=== PATIENT | male | born 1945 | race Caucasian/White ===

== ENCOUNTER 2017-05-03 10:26 | Emergency (ER) | payer OTHER, MEDICARE ==
[~2017-05-03] VITALS: Ht 175.3 cm; Wt 105.0 kg
[2017-05-03 10:37] VITALS: BP 143/84; PULSE 94; RESP 16; TEMP 97.9; O2SAT 97
[2017-05-03] MEDS ORDERED: METF500T PO (10:49)
[2017-05-03] MEDS ORDERED: MAGN400T2 PO (10:49)
[2017-05-03] MEDS ORDERED: NOVOLOGP2 SQ (10:49)
[2017-05-03] MEDS ORDERED: TERA2CAP3 PO (10:49)
[2017-05-03] MEDS ORDERED: LANTUS2P SQ ×2 (10:49→10:52)
[2017-05-03] MEDS ORDERED: FLUO20CA12 PO (10:49)
[2017-05-03] MEDS ORDERED: ETOD200 PO (10:49)
[2017-05-03] MEDS ORDERED: VENL75TA PO (10:49)
[2017-05-03] MEDS ORDERED: LEVO175T2 PO (10:49)
[2017-05-03] MEDS ORDERED: LISI40TA PO (10:49)
[2017-05-03] MEDS ORDERED: SIMV20TA PO (10:49)
[2017-05-03] MEDS ORDERED: ATEN50TA PO (10:49)
[2017-05-03] MEDS ORDERED: TEMA15CA PO (10:49)
--- NOTE | 2017-05-03 10:51 | PD ---
HPI Chief Complaint: Medication Refill Request Time Seen by Provider: 10:43 Travel History International Travel<30 days: No Contact w/Intl Traveler<30days: No Traveled to known affect area: No History of Present Illness HPI 71-year-old diabetic male from [place] presents to the emergency department with a medication refill request. Patient states that he needs a refill of his lantus 70U BID. Says that he traveled to [place] yesterday and forgot his medication at home. He was able to take his dose last night but has not taken his dose this morning. Patient states he will leave for home tomorrow afternoon. Patient has no other complaints today. States he is compliant with his other oral diabetic medications. PFSH Past Medical History Diabetes: Yes Patient Takes Glucophage: No Thyroid Disease: Yes Social History Alcohol Use: No Tobacco Use: No Substance Use: No Allergies-Medications (Allergen,Severity, Reaction): Coded Allergies: Penicillins (Verified Allergy, Unknown, 05/03/17) gemfibrozil (Verified Allergy, Unknown, 05/03/17) Reported Meds & Prescriptions Reported Meds & Active Scripts Active Lantus Inj (Insulin Glargine) 1,000 Unit/10 Ml Vial 70 Units SQ BID 3 Days Reported Effexor (Venlafaxine HCl) 75 Mg Tab 150 Mg PO DAILY Terazosin (Terazosin HCl) 2 Mg Cap 2 Mg PO HS Etodolac 200 Mg Cap 200 Mg PO TID Take with food. Metformin (Metformin HCl) 500 Mg Tab 1,000 Mg PO BIDPC Lisinopril 40 Mg Tab 40 Mg PO DAILY Atenolol 50 Mg Tab 50 Mg PO DAILY Fluoxetine (Fluoxetine HCl) 20 Mg Capsule 20 Mg PO DAILY Simvastatin 20 Mg Tab 20 Mg PO DAILY Temazepam 15 Mg Cap 15 Mg PO HS PRN Levothyroxine (Levothyroxine Sodium) 175 Mcg Tab 175 Mcg PO DAILY Lantus Inj (Insulin Glargine) 1,000 Unit/10 Ml Vial 70 Units SQ BID Novolog Inj (Insulin Aspart) 1,000 Unit/10 Ml Vial 20 Units SQ BID Magnesium Oxide 400 Mg Tab 400 Mg PO BID Review of Systems Except as stated in HPI: all other systems reviewed are Neg Physical Exam Narrative GENERAL: Well-nourished, well-developed patient. SKIN: Focused skin assessment warm/dry. HEAD: Normocephalic. EYES: No scleral icterus. No injection or drainage. NECK: Supple, trachea midline. No JVD or lymphadenopathy. CARDIOVASCULAR: Regular rate and rhythm without murmurs, gallops, or rubs. RESPIRATORY: Breath sounds equal bilaterally. No accessory muscle use.. MUSCULOSKELETAL: No cyanosis, or edema. BACK: Nontender without obvious deformity. No CVA tenderness. Data Data Last Documented VS Vital Signs Date Time Temp Pulse Resp B/P (MAP) Pulse Ox O2 Delivery O2 Flow Rate FiO2 05/03/17 10:37 97.9 94 16 143/84 (103) 97 Orders Orders Ed Discharge Order (05/03/17 10:53) [facility] Medical Decision Making Medical Screen Exam Complete: Yes Emergency Medical Condition: Yes Differential Diagnosis Medication refill, diabetes, noncompliance Narrative Course 71-year-old diabetic male from [place] presents to the emergency department with a medication refill request. Patient states that he needs a refill of his lantus 70U BID. Says that he traveled to [place] yesterday and forgot his medication at home. He was able to take his dose last night but has not taken his dose this morning. Patient states he will leave for home tomorrow afternoon. Patient has no other complaints today. States he is compliant with his other oral diabetic medications. Vital signs stable Physical exam findings are remarkable. We'll fill Lantus 70 units twice a day. Advised to follow-up with his primary care physician within 2-3 days. Advised to return to the emergency department for worsening or persistent symptoms. Diagnosis Primary Impression: Medication refill Referrals: Primary Care Physician Additional Instructions: Follow up with your primary care physician within 2-3 days. If your symptoms persist or worsen, return to the emergency department. Scripts Insulin Glargine Inj (Lantus Inj) 1,000 Unit/10 Ml Vial 70 UNITS SQ BID for Blood Sugar Management for 3 Days, VIAL 1 Refill Prov: Talha Marie MD 05/03/17 Disposition: 01 DISCHARGE HOME Condition: Stable Jessa Miranda May 03, 2017 10:51
== END 2017-05-03 11:13 | disposition home or self-care (01) ==
LOC: PHEFT 10:26
DX: Z76.0 Encounter for issue of repeat prescription (principal); E11.9 Type 2 diabetes mellitus without complications
CPT/HCPCS: 99281